=== PATIENT | male | born 1980 | race Caucasian/White ===

== ENCOUNTER 2018-05-02 17:12 | Emergency (ER) | payer SELFPAY ==
[~2018-05-02] VITALS: Ht 185.4 cm; Wt 100.9 kg
[~2018-05-02 17:12] MED LIST: CELEXA20 MG PO; CIPRO500 MG PO; PRILOSEC20 MG PO; TYLENOL 325 MG325 MG PO
[2018-05-02 17:21] VITALS: Ht 185.4 cm; Wt 100.9 kg
[2018-05-02] MEDS ORDERED: ULTRAM50 MG PO (21:30)
[2018-05-02 21:40] VITALS: BP 109/63
== END 2018-05-02 21:50 | disposition home or self-care (01) ==
LOC: D.ER 17:12
DX: M25.851 Other specified joint disorders, right hip (principal); M16.11 Unilateral primary osteoarthritis, right hip; S46.011A Strain of muscle(s) and tendon(s) of the rotator cuff of right shoulder, initial encounter; X58.XXXA Exposure to other specified factors, initial encounter; Y93.89 Activity, other specified; Y92.89 Other specified places as the place of occurrence of the external cause; M25.511 Pain in right shoulder; F17.200 Nicotine dependence, unspecified, uncomplicated